=== PATIENT | female | born 1950 | race Caucasian/White ===

== ENCOUNTER 2019-11-11 14:14 | Emergency (ER) | payer BC, OTHER ==
[~2019-11-11] VITALS: Ht 160 cm; Wt 64.4 kg
[2019-11-11 14:14] VITALS: BP_SYST 147
--- NOTE | 2019-11-11 14:14 | NUR ---
Patient to ER bed 2 to gown for evaluation. Side rails up.
--- NOTE | 2019-11-11 14:15 | NUR ---
Patient presented to ER C/O near syncope. Patient A&Ox4, BIB [facility], afebrile, skin pink & warm, pain /, denies N/V/D. Medic states PT had mechanical slip & fall, denies KO, post fall pt had dizziness and "clouds" in vision. Patient states dizziness resolved and has left wrist pain post fal. Patient states she had fall at home last Wednesday.
[2019-11-11] MEDS ORDERED: NACL 0.9% 1,000 ML IV ONE (14:29)
--- NOTE | 2019-11-11 14:30 | NUR ---
ER Dr. Kelly at bedside examining patient.
--- NOTE | 2019-11-11 14:42 | NUR ---
Patient to CT via gurney with radiology staff.
--- NOTE | 2019-11-11 14:52 | NUR ---
PT to ER from CT
[2019-11-11 15:22] LABS: BASOPHILS # (AUTO) 0.1 K/uL (0.0-0.2); BASOPHILS % (AUTO) 0.5 % (0.0-2.0); EOSINOPHILS # (AUTO) 0.1 K/uL (0.0-0.4); EOSINOPHILS % (AUTO) 0.9 % (0.0-4.0); HEMATOCRIT 48.1 % (36-48); LYMPHOCYTES # (AUTO) 2.4 K/uL (1.0-5.5); LYMPHOCYTES % (AUTO) 16.4 % (20.5-51.5); MEAN CORPUSCULAR HEMOGLOBIN 35 pg (27-31); MEAN CORPUSCULAR HGB CONC 33 % (32-36); MEAN CORPUSCULAR VOLUME 106 fL (79.0-98.0); MONOCYTES # (AUTO) 1.3 K/uL (0.0-1.0); MONOCYTES % (AUTO) 9.3 % (1.7-9.3); NEUTROPHILS # (AUTO) 10.6 K/uL (1.8-7.7); NEUTROPHILS % (AUTO) 72.9 % (40.0-70.0); PLATELET COUNT (AUTO) 273 K/uL (130-430); RED BLOOD CELL COUNT(AUTO) 4.54 MIL/uL (4.2-6.2); RED CELL DISTRIBUTION WIDTH 13.4 % (9.0-15.0); WHITE BLOOD COUNT (AUTO) 14.6 K/uL (4.8-10.8)
[2019-11-11 15:33] LABS: INR 1.1 (0.8-1.2); PROTHROMBIN TIME 10.7 SECS (9.5-12.5)
[2019-11-11 16:09] LABS: ANION GAP 5 (5-15); CALCIUM 8.3 mg/dL (8.4-11.0); CHLORIDE 101 mmol/L (98-107); GLUCOSE 82 mg/dL (70-99); POTASSIUM 3.8 mmol/L (3.5-5.1); SODIUM SERUM 137 mmol/L (136-145); UREA NITROGEN, BLOOD 12 mg/dL (8-21)
[2019-11-11 16:10] LABS: GFR AFRICAN AMERICAN 64 mL/min (>90)
[2019-11-11 16:15] LABS: ALANINE AMINOTRANSFERASE 21 U/L (12-78); ALBUMIN 3.5 g/dL (3.4-4.8); AMYLASE 54 U/L (0-100); ASPARTATE AMINOTRANSFERASE 12 U/L (10-37); LIPASE 175 U/L (73-393); TOTAL BILIRUBIN 0.8 mg/dL (0.0-1.0)
[2019-11-11 16:18] LABS: ACETAMINOPHEN < 1 ug/mL (1-30); ALCOHOL, BLOOD < 3 mg/dL (<10)
[2019-11-11 18:31] VITALS: BP_SYST 141
--- NOTE | 2019-11-11 18:32 | NUR ---
Patient given written and verbal discharge instructions and verbalizes understanding. ER MD discussed with patient the results and treatment provided. Patient in stable condition. ID arm band removed. IV catheter removed intact and dressing applied, no active bleeding. Rx of Naprosyn given. Patient educated on pain management and to follow up with PMD. Pain Scale 0/10. Opportunity for questions provided and answered. Medication side effect fact sheet provided.
== END 2019-11-11 18:32 | disposition home or self-care (01) ==
LOC: SED 14:14
DX: S60.222A Contusion of left hand, initial encounter (principal); S70.01XA Contusion of right hip, initial encounter; M19.042 Primary osteoarthritis, left hand; R55 Syncope and collapse; I10 Essential (primary) hypertension; J44.9 Chronic obstructive pulmonary disease, unspecified; E05.90 Thyrotoxicosis, unspecified without thyrotoxic crisis or storm; W18.39XA Other fall on same level, initial encounter; Y93.89 Activity, other specified; Y92.89 Other specified places as the place of occurrence of the external cause; Y99.8 Other external cause status
CPT/HCPCS: 29125; 36415; 70450; 71045; 73130; 80053; 82150; 82550; 83605; 83690; 84484; 85025; 85610; 85730; 87040; 93005; 96360; 96361; 99285; G0480; G0482; J7030

== ENCOUNTER 2023-04-21 16:04 | Inpatient (IN) | payer BC ==
[~2023-04-21] VITALS: Ht 152.4 cm; Wt 58.5 kg
[2023-04-21 16:12] VITALS: BP_SYST 102; PULSE 85; RESP 20; TEMP 98.2; O2SAT 98
[2023-04-21] MEDS ORDERED: NACL 0.9% 1,000 ML IV ONE (16:30)
[2023-04-21 17:07] LABS: BASOPHILS % (AUTO) 0.8 % (0.0-2.0); EOSINOPHILS % (AUTO) 0.2 % (0.0-4.0); HEMATOCRIT 41.3 % (36-48); HEMOGLOBIN 13.9 g/dL (12.0-16.0); LYMPHOCYTES # (AUTO) 1.2 K/uL (1.0-5.5); LYMPHOCYTES % (AUTO) 25.5 % (20.5-51.5); MEAN CORPUSCULAR HEMOGLOBIN 35 pg (27-31); MEAN CORPUSCULAR HGB CONC 34 % (32-36); MEAN CORPUSCULAR VOLUME 103 fL (79.0-98.0); MONOCYTES # (AUTO) 1.1 K/uL (0.0-1.0); MONOCYTES % (AUTO) 24.2 % (1.7-9.3); NEUTROPHILS # (AUTO) 2.3 K/uL (1.8-7.7); NEUTROPHILS % (AUTO) 49.3 % (40.0-70.0); PLATELET COUNT (AUTO) 184 K/uL (130-430); RED BLOOD CELL COUNT(AUTO) 4.02 MIL/uL (4.2-6.2); WHITE BLOOD COUNT (AUTO) 4.6 K/uL (4.8-10.8)
[2023-04-21 17:24] LABS: ANION GAP 9 (5-15); CALCIUM 7.6 mg/dL (8.4-11.0); CARBON DIOXIDE 28 mmol/L (23-29); CHLORIDE 97 mmol/L (98-107); GLUCOSE 91 mg/dL (74-106); POTASSIUM 3.1 mmol/L (3.5-5.1); SODIUM SERUM 134 mmol/L (136-145); UREA NITROGEN, BLOOD 9 mg/dL (8-21)
[2023-04-21 17:25] LABS: PROTHROMBIN TIME 10.7 SECS (9.5-12.5)
[2023-04-21 17:43] LABS: ALANINE AMINOTRANSFERASE 26 U/L (12-78); ALBUMIN 3.6 g/dL (3.4-4.8); ASPARTATE AMINOTRANSFERASE 38 U/L (10-37); TOTAL BILIRUBIN 0.4 mg/dL (0.0-1.0); TOTAL PROTEIN, SERUM 6.8 g/dL (6.4-8.3)
[2023-04-21] MEDS ORDERED: VENL75CA56 PO (18:37)
[2023-04-21] MEDS ORDERED: GABA-331 PO (18:37)
[2023-04-21] MEDS ORDERED: UMEC1BLS INH (18:37)
[2023-04-21] MEDS ORDERED: RESEYE EACH EYE (18:37)
[2023-04-21] MEDS ORDERED: MONT-40 PO (18:37)
[2023-04-21] MEDS ORDERED: ALEN70TA27 PO (18:37)
[2023-04-21] MEDS ORDERED: ATOR10TA68 PO (18:37)
[2023-04-21] MEDS ORDERED: LEVO50TA8 PO (18:37)
[2023-04-21] MEDS ORDERED: PANT40TA45 PO (18:37)
[2023-04-21] MEDS: 0.45% NACL 1,000 ML IV SCH (20:36)
[2023-04-21 21:46] LABS: BILIRUBIN,URINE NEGATIVE (NEGATIVE); BLOOD, URINE 1+ (NEGATIVE); COLOR,URINE YELLOW (YELLOW); GLUCOSE,URINE NEGATIVE (NEGATIVE); KETONES,URINE NEGATIVE (NEGATIVE); LEUKOCYTE ESTERASE ,URINE NEGATIVE (NEGATIVE); NITRITE, URINE NEGATIVE (NEGATIVE); PH,URINE 6.5 (5.0-8.0); PROTEIN URINE 1+ (NEGATIVE); UROBILINOGEN,URINE 0.2 (0.2-1.0)
[2023-04-21 22:07] LABS: CLARITY/URINE HAZY (CLEAR)
[2023-04-21 22:08] LABS: BACTERIA,URINE None Seen /HPF (None Seen); WBC,URINE 0-3 /HPF (0-3)
[2023-04-21 22:30] VITALS: BP_SYST 156; PULSE 68; RESP 18; TEMP 98.8
[2023-04-21 22:50] VITALS: BP_SYST 152; PULSE 68; RESP 18; TEMP 98.8; O2SAT 98
[2023-04-22] MEDS ORDERED: ACETAMINOPHEN 500 MG TABLET PO ONE
[2023-04-22] MEDS ORDERED: LORazepam 1 MG TABLET PO ONE
[2023-04-22] MEDS ORDERED: POTASSIUM CHLORIDE 20 MEQ TAB.PRT.SR PO ONE (00:15)
[2023-04-22] MEDS: 0.45% NACL 1,000 ML IV SCH ×2 (06:52→16:50)
[2023-04-22 08:00] VITALS: O2SAT 99
[2023-04-22 08:30] VITALS: BP_SYST 159; PULSE 96; RESP 18; TEMP 98; O2SAT 98
[2023-04-22 15:58] VITALS: BP_SYST 166; PULSE 68; RESP 18; TEMP 98.6
[2023-04-22 20:00] VITALS: BP_SYST 167; PULSE 71; RESP 20; TEMP 98.2; O2SAT 92
[2023-04-22] MEDS ORDERED: traMADol HCL HCL 50 MG TABLET (ULTRAM) PO PRN (20:15)
[2023-04-22] MEDS ORDERED: ALPRAZolam 0.25 MG TABLET PO PRN (20:15)
[2023-04-22] MEDS ORDERED: *LOVENOX0.75MG/KG Q12H/PHARMACY XX ONE (20:15)
[2023-04-22] MEDS: methocarbamoL 500 MG TABLET PO SCH (21:05)
[2023-04-22] MEDS: ATORVASTATIN 10 MG TABLET PO SCH (21:06)
[2023-04-22] MEDS: MONTELUKAST 10 MG TABLET PO SCH (21:06)
[2023-04-22] MEDS: METOPROLOL TARTRATE 50 MG TABLET PO SCH (21:07)
[2023-04-22] MEDS: ENOXAPARIN SODIUM 40 MG/0.4 ML SYRINGE SUBCUT SCH (21:08)
[2023-04-22] MEDS: Effexor 37.5 MG TAB PO SCH (21:20)
[2023-04-22] MEDS: cycloSPORINE 0.05%, 0.4 ML OPHTHALMIC EMULSION DROPERETTE OP SCH (21:21)
[2023-04-23] VITALS (8 sets, daily range): BP systolic 121–171; PULSE 63–93; RESP 18–19; TEMP 98.1–98.8; O2SAT 93–98
[2023-04-23] MEDS: 0.45% NACL 1,000 ML IV SCH ×3 (04:17→14:26)
[2023-04-23 07:44] LABS: BASOPHILS % (AUTO) 0.6 % (0.0-2.0); EOSINOPHILS % (AUTO) 0.5 % (0.0-4.0); HEMATOCRIT 45.3 % (36-48); HEMOGLOBIN 15.2 g/dL (12.0-16.0); LYMPHOCYTES # (AUTO) 1.5 K/uL (1.0-5.5); LYMPHOCYTES % (AUTO) 34.7 % (20.5-51.5); MEAN CORPUSCULAR HEMOGLOBIN 34 pg (27-31); MEAN CORPUSCULAR HGB CONC 34 % (32-36); MEAN CORPUSCULAR VOLUME 102 fL (79.0-98.0); MONOCYTES # (AUTO) 0.7 K/uL (0.0-1.0); MONOCYTES % (AUTO) 16.8 % (1.7-9.3); NEUTROPHILS % (AUTO) 47.4 % (40.0-70.0); PLATELET COUNT (AUTO) 204 K/uL (130-430); RED BLOOD CELL COUNT(AUTO) 4.46 MIL/uL (4.2-6.2); RED CELL DISTRIBUTION WIDTH 13.7 % (9.0-15.0); WHITE BLOOD COUNT (AUTO) 4.3 K/uL (4.8-10.8)
[2023-04-23 07:45] LABS: ANION GAP 11 (5-15); CALCIUM 8.4 mg/dL (8.4-11.0); CARBON DIOXIDE 28 mmol/L (23-29); CHLORIDE 100 mmol/L (98-107); CREATININE 0.64 mg/dL (0.55-1.30); GLUCOSE 93 mg/dL (74-106); POTASSIUM 3.7 mmol/L (3.5-5.1); SODIUM SERUM 139 mmol/L (136-145); UREA NITROGEN, BLOOD 5 mg/dL (8-21)
[2023-04-23] MEDS: PANTOPRAZOLE SODIUM 40 MG TAB PO SCH (08:45)
[2023-04-23] MEDS: methocarbamoL 500 MG TABLET PO SCH ×4 (08:45→20:26)
[2023-04-23] MEDS: ENOXAPARIN SODIUM 40 MG/0.4 ML SYRINGE SUBCUT SCH ×2 (08:45→20:31)
[2023-04-23] MEDS: LEVOTHYROXINE SODIUM 0.05 MG TABLET PO SCH (08:45)
[2023-04-23] MEDS: METOPROLOL TARTRATE 50 MG TABLET PO SCH ×2 (08:46→20:30)
[2023-04-23] MEDS: ASPIRIN 81 MG TABLET(ECOTRIN) PO SCH (08:46)
[2023-04-23] MEDS: cycloSPORINE 0.05%, 0.4 ML OPHTHALMIC EMULSION DROPERETTE OP SCH ×2 (08:47→20:32)
[2023-04-23] MEDS: Effexor 37.5 MG TAB PO SCH ×2 (08:50→20:27)
[2023-04-23] MEDS ORDERED: VENLAFAXINE HCL Non-Formulary 75 MG CAP.SR.24H PO SCH (09:00)
[2023-04-23] MEDS: MONTELUKAST 10 MG TABLET PO SCH (20:27)
[2023-04-23] MEDS: ATORVASTATIN 10 MG TABLET PO SCH (20:27)
[2023-04-24 00:05] VITALS: BP_SYST 140; PULSE 65; RESP 20; TEMP 96.1; O2SAT 94
[2023-04-24 02:45] VITALS: O2SAT 98
[2023-04-24] MEDS: LEVOTHYROXINE SODIUM 0.05 MG TABLET PO SCH (06:04)
[2023-04-24] MEDS: 0.45% NACL 1,000 ML IV SCH ×2 (06:05→16:45)
[2023-04-24 08:00] VITALS: BP_SYST 162; PULSE 61; RESP 16; TEMP 97.7; O2SAT 94
[2023-04-24] MEDS ORDERED: amLODIPine BESYLATE 5 MG TABLET PO SCH (09:00)
[2023-04-24 09:02] LABS: BASOPHILS % (AUTO) 0.5 % (0.0-2.0); EOSINOPHILS % (AUTO) 0.3 % (0.0-4.0); HEMATOCRIT 47.2 % (36-48); LYMPHOCYTES # (AUTO) 1.1 K/uL (1.0-5.5); LYMPHOCYTES % (AUTO) 26.7 % (20.5-51.5); MEAN CORPUSCULAR HEMOGLOBIN 34 pg (27-31); MEAN CORPUSCULAR HGB CONC 34 % (32-36); MEAN CORPUSCULAR VOLUME 101 fL (79.0-98.0); MONOCYTES # (AUTO) 0.6 K/uL (0.0-1.0); MONOCYTES % (AUTO) 14.6 % (1.7-9.3); NEUTROPHILS # (AUTO) 2.4 K/uL (1.8-7.7); NEUTROPHILS % (AUTO) 57.9 % (40.0-70.0); PLATELET COUNT (AUTO) 207 K/uL (130-430); RED BLOOD CELL COUNT(AUTO) 4.69 MIL/uL (4.2-6.2); RED CELL DISTRIBUTION WIDTH 13.3 % (9.0-15.0); WHITE BLOOD COUNT (AUTO) 4.2 K/uL (4.8-10.8)
[2023-04-24] MEDS: PANTOPRAZOLE SODIUM 40 MG TAB PO SCH (10:01)
[2023-04-24 10:02] LABS: ANION GAP 12 (5-15); CALCIUM 8.5 mg/dL (8.4-11.0); CARBON DIOXIDE 28 mmol/L (23-29); CHLORIDE 96 mmol/L (98-107); CREATININE 0.67 mg/dL (0.55-1.30); GLUCOSE 150 mg/dL (74-106); SODIUM SERUM 136 mmol/L (136-145); UREA NITROGEN, BLOOD 5 mg/dL (8-21)
[2023-04-24] MEDS: methocarbamoL 500 MG TABLET PO SCH ×3 (10:04→17:51)
[2023-04-24] MEDS: METOPROLOL TARTRATE 50 MG TABLET PO SCH (10:04)
[2023-04-24] MEDS: ASPIRIN 81 MG TABLET(ECOTRIN) PO SCH (10:05)
[2023-04-24] MEDS: ENOXAPARIN SODIUM 40 MG/0.4 ML SYRINGE SUBCUT SCH (10:06)
[2023-04-24] MEDS: Effexor 37.5 MG TAB PO SCH (10:24)
[2023-04-24] MEDS: cycloSPORINE 0.05%, 0.4 ML OPHTHALMIC EMULSION DROPERETTE OP SCH (10:25)
[2023-04-24 10:32] LABS: POTASSIUM 2.8 mmol/L (3.5-5.1)
[2023-04-24] MEDS ORDERED: POTASSIUM CHLORIDE 40 MEQ in NS 250 ML IV ONE (10:45)
[2023-04-24] MEDS ORDERED: POTASSIUM CHLORIDE 20 mEq in 100 mL (PREMIX) 100 ML x 2 doses IV SCH (11:00)
[2023-04-24] MEDS ORDERED: METH-799 PO (11:54)
[2023-04-24] MEDS ORDERED: AMLO5TAB4 PO (11:54)
[2023-04-24] MEDS ORDERED: METO-442 PO (11:54)
[2023-04-24] MEDS ORDERED: Aspirin Ec PO (11:54)
[2023-04-24] MEDS ORDERED: TRAM50TA2 PO (11:54)
[2023-04-24 12:00] VITALS: BP_SYST 157; PULSE 55; RESP 17; TEMP 97.8; O2SAT 98
[2023-04-24] MEDS ORDERED: MAGNESIUM SULFATE 50 ML IV ONE (13:00)
[2023-04-24] MEDS ORDERED: LIDOCAINE JECT IV ONE ×2 (13:45→14:30)
[2023-04-24] MEDS ORDERED: KCL IV ONE (13:45)
[2023-04-24] MEDS ORDERED: NS IV ONE ×2 (13:45→14:30)
[2023-04-24] MEDS ORDERED: POTASSIUM CHLORIDE IV ONE (14:30)
[2023-04-24 15:34] VITALS: BP_SYST 157; PULSE 55; RESP 16; TEMP 97.2; O2SAT 99
[2023-04-27] MEDS ORDERED: ALENDRONATE SODIUM 35 MG TABLET PO SCH (09:00)
== END 2023-04-24 18:15 | disposition home or self-care (01) | DRG 641 ==
LOC: SED 16:04 → STU 18:38
PROVIDERS: ADMIT Specialist; ATTEND Specialist
DX: E86.0 Dehydration (principal); E87.6 Hypokalemia; R55 Syncope and collapse; M54.9 Dorsalgia, unspecified; F41.9 Anxiety disorder, unspecified; F32.A Depression, unspecified; E66.9 Obesity, unspecified; I10 Essential (primary) hypertension; E03.9 Hypothyroidism, unspecified; I34.0 Nonrheumatic mitral (valve) insufficiency; Z85.118 Personal history of other malignant neoplasm of bronchus and lung; Z88.5 Allergy status to narcotic agent; Z88.0 Allergy status to penicillin; Z79.899 Other long term (current) drug therapy; Z68.25 Body mass index [BMI] 25.0-25.9, adult
CPT/HCPCS: 36415; 70450-TC; 71045; 72131; 76376; 80048; 80053; 81000; 82533; 82962; 83605; 84443; 84484; 85025; 85610-TC; 85730-TC; 87040; 87086; 93005; 93306; 93880; 96360; 96361; 99285; G0378; J1650; J3475; J3480; J7050